=== PATIENT | female | born 1960 | race Caucasian/White ===

== ENCOUNTER 2023-03-06 09:55 | Day surgery (SDC) | payer MEDICARE ==
[2023-03-06] MEDS ORDERED: LIDOCAINE HCL 2% 100 MG/5 ML IJ ONE (09:56)
[2023-03-06] MEDS ORDERED: Decadron 4 MG INJ IV ONE (09:56)
[2023-03-06] MEDS ORDERED: Versed 2 MG/2 ML Injection ONE (11:31)
[2023-03-06] MEDS ORDERED: DIPRIVAN 200 MG/20 ML IV ONE (11:49)
--- NOTE | 2023-03-06 13:10 | XRAY ---
Indication: Right C2-C5 MBB. Intraoperative fluoroscopy provided for 25 seconds. 2 digital spot image submitted for interpretation demonstrates posterior needle tips projecting over the expected right C2-C5 nerve roots. Correlate with intraoperative findings/report.
[2023-03-06] MEDS ORDERED: Lactated Ringers 1,000 ML IV ONE (13:11)
--- NOTE | 2023-03-06 13:30 | XRAY ---
25 seconds of fluoroscopy was used in surgery for a right C2-C5 MBB.
== END 2023-03-06 12:24 | disposition home or self-care (01) ==
LOC: SDC-PAIN 09:55
PROVIDERS: ATTEND Psychiatry & Neurology Pain Medicine
DX: M47.812 Spondylosis without myelopathy or radiculopathy, cervical region (principal); E11.9 Type 2 diabetes mellitus without complications; Z79.899 Other long term (current) drug therapy
CPT/HCPCS: 64490; 64491; 64492; 72040; 77002; 82947; J1100; J2250; J2704

== ENCOUNTER 2023-09-18 09:44 | Day surgery (SDC) | payer MEDICARE ==
[2023-09-18] MEDS ORDERED: BUPIVACAINE 0.5% VIAL IJ ONE (09:45)
[2023-09-18] MEDS ORDERED: Versed 2 MG/2 ML Injection ONE (11:32)
[2023-09-18] MEDS ORDERED: Lactated Ringers 1,000 ML IV ONE (12:18)
[2023-09-18] MEDS ORDERED: DIPRIVAN 200 MG/20 ML IV ONE (12:21)
--- NOTE | 2023-09-18 14:41 | XRAY ---
Indication: Right C2-C4 MBB. Intraoperative fluoroscopy provided for 16 seconds. 2 digital spot images submitted for interpretation demonstrates posterior needle tips projecting over the expected right C2-C4 nerve roots. Correlate with intraoperative findings/report.
--- NOTE | 2023-09-18 15:05 | XRAY ---
16 seconds of fluoroscopy was used in surgery for a right C2-C4 MBB.
== END 2023-09-18 12:55 | disposition home or self-care (01) ==
LOC: SDC-PAIN 09:44
PROVIDERS: ATTEND Psychiatry & Neurology Pain Medicine
DX: M47.812 Spondylosis without myelopathy or radiculopathy, cervical region (principal); E11.9 Type 2 diabetes mellitus without complications
CPT/HCPCS: 64490; 64491; 72040; 77002; 82947; J2250; J2704

== ENCOUNTER 2023-10-23 07:04 | Day surgery (SDC) | payer MEDICARE ==
[2023-10-23] MEDS ORDERED: LIDOCAINE HCL 1% 50 MG/5 ML VL PF IJ ONE (07:05)
[2023-10-23] MEDS ORDERED: BUPIVACAINE 0.5% VIAL IJ ONE (07:05)
[2023-10-23] MEDS ORDERED: Decadron 4 MG INJ IV ONE (07:05)
[2023-10-23] MEDS ORDERED: Versed 2 MG/2 ML Injection ONE (07:54)
[2023-10-23] MEDS ORDERED: DIPRIVAN 200 MG/20 ML IV ONE (08:40)
[2023-10-23] MEDS ORDERED: Lactated Ringers 1,000 ML IV ONE (10:01)
--- NOTE | 2023-10-23 10:08 | XRAY ---
Indication: Right C2-C4 RFA. Intraoperative fluoroscopy provided for 40 seconds. 4 digital spot image submitted for interpretation demonstrates posterior needle tips projecting over expected right C2-C4 nerve roots. Correlate with intraoperative findings/report.
--- NOTE | 2023-10-23 12:08 | XRAY ---
40 seconds of fluoroscopy was used in surgery for a right C2-C4 RFA.
== END 2023-10-23 09:20 | disposition home or self-care (01) ==
LOC: SDC-PAIN 07:04
PROVIDERS: ATTEND Psychiatry & Neurology Pain Medicine
DX: M47.812 Spondylosis without myelopathy or radiculopathy, cervical region (principal); E11.9 Type 2 diabetes mellitus without complications
CPT/HCPCS: 64633; 64634; 72040; 77002; 82947; J1100; J2001; J2250; J2704